=== PATIENT | female | born 1985 | race African-American/Black ===

== ENCOUNTER 2017-10-30 18:04 | Emergency (ER) | payer SELFPAY ==
[~2017-10-30] VITALS: Ht 165.1 cm; Wt 63.6 kg
[2017-10-30 18:23] VITALS: BP 147/85; PULSE 85; RESP 18; TEMP 98.8; O2SAT 99
--- NOTE | 2017-10-30 19:38 | RADRPT ---
EXAM DATE/TIME: 10/30/2017 18:48 [place] COMPARISON: No previous studies available for comparison. INDICATIONS : Cough for the past week. MEDICAL HISTORY : None. SURGICAL HISTORY : None. ENCOUNTER: Initial ACUITY: 1 week PAIN SCORE: 0/10 LOCATION: Bilateral chest FINDINGS: PA and lateral views of the chest demonstrate the lungs to be symmetrically aerated without evidence of mass, infiltrate or effusion. The cardiomediastinal contours are unremarkable. Osseous structure s are intact. CONCLUSION: No acute disease. Winston Wright MD on October 30, 2017 at 19:36 Board Certified Radiologist. This report was verified electronically.
[2017-10-30] MEDS ORDERED: HYDR1CRE TOPICAL (20:00)
[2017-10-30] MEDS ORDERED: BENZ100 PO (20:00)
--- NOTE | 2017-10-30 20:05 | PD ---
HPI Chief Complaint: Cold / Flu Symptoms Time Seen by Provider: 19:45 Travel History International Travel<30 days: No Contact w/Intl Traveler<30days: No Traveled to known affect area: No History of Present Illness HPI 32-year-old female presents to the emergency room for evaluation of nonproductive cough for the past 2 weeks. Patient states it started off as an upper respiratory infection with cough, sore throat, congestion, nausea, vomiting, and fever. Most of the symptoms have subsided but the cough and sore throat are persistent. She has tried multiple [id number] medications without relief in symptoms. Cough is severe at night. She denies chest pain, shortness of breath, or difficulty breathing. Denies history of asthma. Denies any chronic medical conditions or daily medications. Denies possibility of . PFSH Past Medical History ?: Not LMP: 2 weeks ago Social History Tobacco Use: No Allergies-Medications (Allergen,Severity, Reaction): Coded Allergies: No Known Allergies (Unverified , 10/30/17) Reported Meds & Prescriptions Reported Meds & Active Scripts Active Tessalon Perles (Benzonatate) 100 Mg Cap 100 Mg PO TID PRN Hydrocortisone Topical 1% Cream 1 Applic TOPICAL BID Review of Systems Except as stated in HPI: all other systems reviewed are Neg Physical Exam Narrative GENERAL: Well-nourished, well-developed female no acute distress. Afebrile. Ambulatory. SKIN: Focused skin assessment warm/dry. Patient has dry, cracked skin to bilateral hands and feet. HEAD: Normocephalic. EYES: No scleral icterus. No injection or drainage. NECK: Supple, trachea midline. No JVD or lymphadenopathy. ENT: Mucosa pink and moist. No erythema or exudates. No uvular edema. No uvular , palatal, or tonsillar deviation. Airway patent. Nasal turbinates appear normal without nasal blood, purulent drainage or septal hematoma. EARS: Bilateral pinnae and external canals appear within normal limits. Bilateral tympanic membranes without erythema, dullness or perforation. CARDIOVASCULAR: Regular rate and rhythm without murmurs, gallops, or rubs. RESPIRATORY: Breath sounds equal bilaterally. No accessory muscle use. No crackles, rales, wheezes, or rhonchi. Data Data Last Documented VS Vital Signs Date Time Temp Pulse Resp B/P (MAP) Pulse Ox O2 Delivery O2 Flow Rate FiO2 10/30/17 18:23 98.8 85 18 147/85 (105) 99 Orders Orders Chest, Pa & Lat (10/30/17 ) MDM Medical Decision Making Medical Screen Exam Complete: Yes Emergency Medical Condition: Yes Medical Record Reviewed: Yes Differential Diagnosis Eczema, contact dermatitis, pneumonia, bronchitis Narrative Course 32-year-old female presents to the emergency room for evaluation of cough for the past 2 weeks. She also complains of itchy rash to bilateral feet and hands since working at her new job. Cough is nonproductive. Worse at night. She denies any recent fevers. Physical exam is reassuring. Patient resting comfortably in bed. I do not percent on room air. Lung sounds clear and equal bilaterally. She has contact dermatitis to bilateral hands and feet. Chest x- ray is negative. Patient was reassured. This is bronchitis. She will be discharged with prescription for Tessalon Perles and hydrocortisone cream. Told to follow-up with her primary care physician or return for worsening symptoms. She understands and agrees to plan. Diagnosis Primary Impression: Bronchitis Additional Impression: Contact dermatitis Qualified Codes: L23.9 - Allergic contact dermatitis, unspecified cause Referrals: Primary Care Physician Additional Instructions: Tessalon Perles as directed, as needed. Hydrocortisone cream, as directed for 10-14 days. Follow-up with a primary care physician. Return to the emergency room for worsening symptoms. Med/Other Pt SpecificInfo: Prescription(s) given Scripts Benzonatate (Tessalon Perles) 100 Mg Cap 100 MG PO TID Y for COUGH, #21 CAP 0 Refills Prov: Joaquin Loja MD 10/30/17 Hydrocortisone Topical (Hydrocortisone Topical) 1% Cream 1 APPLIC TOPICAL BID for Rash/Inflammation, #1 TUBE 0 Refills Prov: Joaquin Loja MD 10/30/17 Disposition: 01 DISCHARGE HOME Condition: Stable Jerica Hodges Oct 30, 2017 20:05
== END 2017-10-30 20:23 | disposition home or self-care (01) ==
LOC: NED 18:04 → NEPK 20:23
DX: J40 Bronchitis, not specified as acute or chronic (principal); L25.9 Unspecified contact dermatitis, unspecified cause; R11.2 Nausea with vomiting, unspecified
CPT/HCPCS: 71046; 99283